=== PATIENT | female | born 1945 | race Caucasian/White ===

== ENCOUNTER 2020-12-07 13:04 | Inpatient (IN) | payer OTHER ==
[~2020-12-07] VITALS: Ht 152.4 cm; Wt 86.2 kg
[~2020-12-07 13:04] MED LIST: ALB5IS NEB; FURO40TA4 PO; LEVO500T31 PO; LISI-275 PO; POTA-220 PO
[2020-12-07] MEDS ORDERED: SODIUM CHLORIDE 0.9% 500 ML IV ONE (13:15)
[2020-12-07] MEDS ORDERED: ATENOLOL 25 MG TAB PO ONE (14:00)
[2020-12-07] MEDS ORDERED: FUROSEMIDE 40 MG/4 ML VIAL IV ONE (14:00)
[2020-12-07 15:15] LABS: Eosinophils # (auto) 0 10 ^3/uL (0-0.8); Lymphocytes # (auto) 0.5 10 ^3/uL (0.4-5.4); Nucleated Red Blood Cells % 0.2 %; Platelet Count (auto) 157 10^3/uL (140-450); Red Cell Distribution Width 16.3 % (11.8-14.3)
[2020-12-07 15:16] LABS: Basophils # (auto) 0.1 10 ^3/uL (0-0.2); Basophils % (auto) 0.3 % (0.0-2.0); Hematocrit 53.6 % (36.0-46.0); Hemoglobin 17.5 g/dL (12.2-16.2); Lymphocytes % (auto) 3.4 % (10.0-50.0); Mean Corpuscular Hgb Conc. 32.7 g/dL (32.0-36.0); Mean Corpuscular Volume 97.9 fL (80.0-100.0); Monocytes # (auto) 0.7 10 ^3/uL (0-1.3); Monocytes % (auto) 4.7 % (0.0-12.0); Neutrophils # (auto) 13.8 10 ^3/uL (1.6-8.6); Neutrophils % (auto) 91.6 % (37.0-80.0); Red Blood Cells 5.47 10^6/uL (4.0-5.20); White Blood Cell 15.1 10^3/uL (4.4-10.8)
[2020-12-07 15:31] LABS: Albumin 2.9 g/dL (3.4-5.0); Calcium 8.9 mg/dL (8.5-10.1)
[2020-12-07 15:37] LABS: BUN/Creatinine Ratio 32.9; Bilirubin, Total 1.7 mg/dL (0.2-1.0); Total Protein 7.8 g/dL (6.4-8.2)
[2020-12-07 16:07] LABS: Urine Bacteria FEW /hpf (None Seen); Urine Blood Negative /uL (Negative); Urine Hyaline Cast FEW /lpf (0 - 2); Urine Mucus FEW (None Seen); Urine Specific Gravity 1.021 (1.001-1.035); Urine WBC 3 /hpf (0 - 5)
[2020-12-07 16:19] LABS: Potassium 6.1 mmol/L (3.5-5.1)
[2020-12-07] MEDS ORDERED: SODIUM BICARBONATE 8.4 % INJ 50ML VIAL IV ONE ×2 (16:30→23:15)
[2020-12-07] MEDS ORDERED: CALCIUM GLUC 4.65meq/50ml D5AE 50 ML IV ONE ×2 (16:30→23:15)
[2020-12-07] MEDS ORDERED: ACETAMINOPHEN 325 MG TAB PO PRN (21:15)
[2020-12-07] MEDS ORDERED: TEMAZEPAM 15 MG CAP PO PRN (21:15)
[2020-12-07] MEDS ORDERED: cefTRIAXone 1GM/50ML D5W 50 ML IV ONE (21:15)
[2020-12-07] MEDS ORDERED: ONDANSETRON HCL 4 MG/2 ML VIAL IV PRN (21:15)
[2020-12-07] MEDS ORDERED: MORPHINE SULF INJ 2 MG/ML SYRINGE 1ML IV PRN (21:45)
[2020-12-07] MEDS ORDERED: NITROGLYCERIN 0.4 MG SL TAB SL PRN (21:45)
[2020-12-07 22:41] LABS: BUN/Creatinine Ratio 29.7; Calcium 8.7 mg/dL (8.5-10.1)
[2020-12-07 22:42] LABS: Lactic Acid w/Reflex 3.1 mmol/L (0.4-2.0)
[2020-12-07 22:48] LABS: Potassium 6.6 mmol/L (3.5-5.1)
[2020-12-07] MEDS: CARVEDILOL 3.125 MG TAB PO SCH (23:00)
[2020-12-07] MEDS ORDERED: SODIUM ZIRCONIUM CYCL 10 GM PAK PO ONE (23:15)
[2020-12-07] MEDS ORDERED: ALBUTEROL SULF 2.5 MG/0.5ML(0.5%) NEB SOLN NEB ONE (23:15)
[2020-12-07] MEDS ORDERED: InsuLIN REG 1unit/0.01ml Soln (100units/ml) IV ONE (23:15)
[2020-12-07] MEDS ORDERED: DEXTROSE (50%) 50ML SYRG IV ONE (23:15)
[2020-12-08] MEDS ORDERED: ALBUMIN 5% 250 ML IV ONE (00:30)
[2020-12-08] MEDS ORDERED: NOREPINEPHRINE 8 MG/250ML KIT 250 ML IV ONE (01:57)
[2020-12-08] MEDS: NOREPINEPHRINE 8 MG/250ML KIT 250 ML IV SCH (02:14)
[2020-12-08] MEDS ORDERED: VANCOMYCIN PER PHARMACY 0 MG IV SCH (02:15)
[2020-12-08] MEDS ORDERED: VANCOMYCIN 1GM/250ML 250 ML IV ONE (02:30)
[2020-12-08] MEDS ORDERED: FUROSEMIDE 20 MG/2 ML VIAL IV SCH (06:00)
[2020-12-08 08:28] LABS: Basophils # (auto) 0 10 ^3/uL (0-0.2); Eosinophils # (auto) 0 10 ^3/uL (0-0.8); Monocytes # (auto) 0.7 10 ^3/uL (0-1.3); Neutrophils % (auto) 90.2 % (37.0-80.0)
[2020-12-08 08:30] LABS: Basophils % (auto) 0.2 % (0.0-2.0); Hematocrit 53.8 % (36.0-46.0); Hemoglobin 17.3 g/dL (12.2-16.2); Lymphocytes # (auto) 0.7 10 ^3/uL (0.4-5.4); Lymphocytes % (auto) 4.7 % (10.0-50.0); Mean Corpuscular Hemoglobin 32.3 pg (28.0-32.0); Mean Corpuscular Hgb Conc. 32.2 g/dL (32.0-36.0); Mean Corpuscular Volume 100.1 fL (80.0-100.0); Monocytes % (auto) 4.9 % (0.0-12.0); Neutrophils # (auto) 12.7 10 ^3/uL (1.6-8.6); Nucleated Red Blood Cells % 0.4 %; Platelet Count (auto) 123 10^3/uL (140-450); Red Blood Cells 5.37 10^6/uL (4.0-5.20); Red Cell Distribution Width 16.5 % (11.8-14.3); White Blood Cell 14.1 10^3/uL (4.4-10.8)
[2020-12-08 08:46] LABS: Albumin 2.8 g/dL (3.4-5.0); Calcium 8.9 mg/dL (8.5-10.1)
[2020-12-08 08:49] LABS: Bilirubin, Total 4.3 mg/dL (0.2-1.0); Total Protein 6.6 g/dL (6.4-8.2)
[2020-12-08 08:55] LABS: Potassium 7.2 mmol/L (3.5-5.1)
[2020-12-08] MEDS: cefTRIAXone 1GM/50ML D5W 50 ML IV SCH (09:04)
[2020-12-08] MEDS: CARVEDILOL 3.125 MG TAB PO SCH ×2 (10:00→22:00)
[2020-12-08] MEDS: FUROSEMIDE 40 MG TAB PO SCH (10:00)
[2020-12-08] MEDS: ASPirin 81 mg TAB PO SCH (10:00)
[2020-12-08] MEDS ORDERED: LISINOPRIL 5 MG TAB PO SCH (10:00)
[2020-12-08] MEDS ORDERED: DEXTROSE (50%) 50ML SYRG IV ONE (10:15)
[2020-12-08] MEDS ORDERED: CALCIUM GLUC 4.65meq/50ml D5AE 50 ML IV ONE (10:15)
[2020-12-08] MEDS ORDERED: SODIUM ZIRCONIUM CYCL 10 GM PAK PO ONE ×2 (10:15→16:45)
[2020-12-08] MEDS ORDERED: FUROSEMIDE 20 MG/2 ML VIAL IV ONE (10:15)
[2020-12-08] MEDS ORDERED: SODIUM BICARBONATE 8.4% INJ 50ML SYRINGE IV ONE (10:15)
[2020-12-08] MEDS ORDERED: ALBUTEROL SULF 2.5 MG/0.5ML(0.5%) NEB SOLN NEB ONE (10:15)
[2020-12-08] MEDS ORDERED: InsuLIN REG 1unit/0.01ml Soln (100units/ml) IV ONE (10:15)
[2020-12-08] MEDS ORDERED: PHENYLEPHRINE IV 250 ML IV ONE (13:56)
[2020-12-08] MEDS ORDERED: SUCCINYLCHOLINE CHLORIDE 20 MG/ML 10ML VIAL IV ONE ×2 (14:04→14:15)
[2020-12-08] MEDS ORDERED: ETOMIDATE (2MG/ML) 20ML VIAL IV ONE ×2 (14:04→14:15)
[2020-12-08] MEDS ORDERED: MIDAZOLAM DRIP 50 mg/50mL 50 ML IV ONE (14:09)
[2020-12-08] MEDS: MIDAZOLAM DRIP 50 mg/50mL 50 ML IV SCH (14:21)
[2020-12-08] MEDS: PHENYLEPHRINE IV 250 ML IV SCH ×2 (15:41→22:20)
[2020-12-08] MEDS: SODIUM BICARBONATE 50ML VIAL 150 ML in D5W 5% 1,000 ML IV SCH (16:48)
[2020-12-08] MEDS ORDERED: VANCOMYCIN 500 MG in D5W 5% 100 ML IV ONE (17:00)
[2020-12-08 18:50] VITALS: BP 95/67
[2020-12-08] MEDS: SODIUM ZIRCONIUM CYCL 10 GM PAK PO SCH (22:00)
[2020-12-08 22:44] VITALS: BP 82/64
[2020-12-09] MEDS: NOREPINEPHRINE 8 MG/250ML KIT 250 ML IV SCH (02:00)
[2020-12-09 02:18] VITALS: BP 97/71
[2020-12-09] MEDS: SODIUM BICARBONATE 50ML VIAL 150 ML in D5W 5% 1,000 ML IV SCH ×2 (03:15→14:45)
[2020-12-09 05:32] VITALS: BP 97/77
[2020-12-09] MEDS: SODIUM ZIRCONIUM CYCL 10 GM PAK PO SCH (06:05)
[2020-12-09] MEDS: PHENYLEPHRINE IV 250 ML IV SCH ×2 (06:40→15:00)
[2020-12-09 07:11] LABS: Basophils # (auto) 0.1 10 ^3/uL (0-0.2); Basophils % (auto) 0.4 % (0.0-2.0); Eosinophils # (auto) 0 10 ^3/uL (0-0.8); Hematocrit 49.2 % (36.0-46.0); Lymphocytes # (auto) 0.8 10 ^3/uL (0.4-5.4); Lymphocytes % (auto) 5.7 % (10.0-50.0); Mean Corpuscular Hemoglobin 31.7 pg (28.0-32.0); Mean Corpuscular Hgb Conc. 32.6 g/dL (32.0-36.0); Mean Corpuscular Volume 97.1 fL (80.0-100.0); Monocytes # (auto) 0.7 10 ^3/uL (0-1.3); Monocytes % (auto) 4.6 % (0.0-12.0); Neutrophils # (auto) 13.2 10 ^3/uL (1.6-8.6); Neutrophils % (auto) 89.3 % (37.0-80.0); Nucleated Red Blood Cells % 1.2 %; Platelet Count (auto) 108 10^3/uL (140-450); Red Blood Cells 5.06 10^6/uL (4.0-5.20); Red Cell Distribution Width 16.2 % (11.8-14.3); White Blood Cell 14.7 10^3/uL (4.4-10.8)
[2020-12-09 07:32] LABS: BUN/Creatinine Ratio 34.2; Calcium 6.9 mg/dL (8.5-10.1); Potassium 4.7 mmol/L (3.5-5.1)
[2020-12-09] MEDS: CARVEDILOL 3.125 MG TAB PO SCH (08:07)
[2020-12-09] MEDS: FUROSEMIDE 40 MG TAB PO SCH (08:07)
[2020-12-09] MEDS: ASPirin 81 mg TAB PO SCH (08:21)
[2020-12-09] MEDS: cefTRIAXone 1GM/50ML D5W 50 ML IV SCH (08:21)
[2020-12-09 09:23] VITALS: BP 117/57
[2020-12-09] MEDS ORDERED: FUROSEMIDE 20 MG/2 ML VIAL IV ONE (10:00)
[2020-12-09 10:17] VITALS: BP 104/86
[2020-12-09] MEDS ORDERED: VANCOMYCIN 1GM/250ML 250 ML IV ONE (14:00)
[2020-12-09 16:26] VITALS: BP 100/79
[2020-12-09 18:12] VITALS: BP 47/26
[2020-12-09] MEDS: MIDAZOLAM DRIP 50 mg/50mL 50 ML IV SCH (18:12)
== END 2020-12-09 20:22 | DRG 871 ==
LOC: EDBD 13:04 → ER 13:04 → TELE 13:05
PROVIDERS: ADMIT Nurse Practitioner; ATTEND Internal Medicine
PROC: 02HV33Z Insertion of Infusion Device into Superior Vena Cava, Percutaneous Approach (ICD-10-PCS; principal; 2020-12-08)
PROC: 5A1935Z Respiratory Ventilation, Less than 24 Consecutive Hours (ICD-10-PCS; 2020-12-08)
PROC: 0BH17EZ Insertion of Endotracheal Airway into Trachea, Via Natural or Artificial Opening (ICD-10-PCS; 2020-12-08)
DX: A41.9 Sepsis, unspecified organism (principal); G93.41 Metabolic encephalopathy; J18.9 Pneumonia, unspecified organism; J96.01 Acute respiratory failure with hypoxia; R65.21 Severe sepsis with septic shock; K72.00 Acute and subacute hepatic failure without coma; E44.0 Moderate protein-calorie malnutrition; E87.4 Mixed disorder of acid-base balance; I13.0 Hypertensive heart and chronic kidney disease with heart failure and stage 1 through stage 4 chronic kidney disease, or unspecified chronic kidney disease; I42.9 Cardiomyopathy, unspecified; J44.0 Chronic obstructive pulmonary disease with (acute) lower respiratory infection; I50.22 Chronic systolic (congestive) heart failure; N17.9 Acute kidney failure, unspecified; E87.5 Hyperkalemia; E66.01 Morbid (severe) obesity due to excess calories; E11.22 Type 2 diabetes mellitus with diabetic chronic kidney disease; E11.51 Type 2 diabetes mellitus with diabetic peripheral angiopathy without gangrene; F17.210 Nicotine dependence, cigarettes, uncomplicated; H91.90 Unspecified hearing loss, unspecified ear; I46.9 Cardiac arrest, cause unspecified; I48.91 Unspecified atrial fibrillation; N18.2 Chronic kidney disease, stage 2 (mild); W01.0XXA Fall on same level from slipping, tripping and stumbling without subsequent striking against object, initial encounter; Z20.822 Contact with and (suspected) exposure to COVID-19; Z66 Do not resuscitate; M10.9 Gout, unspecified; Z68.37 Body mass index [BMI] 37.0-37.9, adult; Z79.899 Other long term (current) drug therapy; Y93.9 Activity, unspecified; Y92.000 Kitchen of unspecified non-institutional (private) residence as the place of occurrence of the external cause; Y99.9 Unspecified external cause status; Z79.891 Long term (current) use of opiate analgesic; Z79.01 Long term (current) use of anticoagulants; Z98.891 History of uterine scar from previous surgery; Z90.49 Acquired absence of other specified parts of digestive tract; Z98.51 Tubal ligation status
CPT/HCPCS: 31500; 36415; 36600; 70450; 71045; 72192; 76705; 80048; 80053; 80202; 81001; 82805; 82962; 83605; 83880; 84132; 84484; 85025; 87040; 87070; 87077; 87186; 87205; 87426; 92950; 93005; 93306; 94002; 94003; 94640; 96361; 96365; 96375; G0378; J0330; J0610; J0696; J1815; J2250; J7060